=== PATIENT | male | born 1930 | race African-American/Black ===

== ENCOUNTER 2018-03-11 11:31 | Outpatient (CLI) | payer MEDICARE ==
[2018-03-11 12:09] LABS: Blood Urea Nitrogen 23 mg/dL (9-20)
--- NOTE | 2018-03-11 14:43 | Cat Scan Report ---
FINAL REPORT EXAM: CT CHEST W CON HISTORY: CHRONIC COUGH COMPARISON: None. TECHNIQUE: Multiple contiguous axial images were obtained from the thoracic inlet to upper abdomen after administration of IV contrast. Reformatted sagittal and coronal images were available for review. FINDINGS: Medical devices: None. Thyroid: Normal. Lymph nodes: Several sub centimeter lymph nodes in the prevascular, pretracheal, and subcarinal areas of the mediastinum. Vasculature: Mild enlargement of the ascending aorta, which measures up to 3.9 centimeters in diameter. Scattered atherosclerotic calcifications. Small ulcer like projection off the anterior aspect of the ascending aorta (series 2, image 52) and several small ulcer like projections of the distal descending aorta just above the aortic hiatus. Normal caliber of the pulmonary artery. No filling defect to suggest pulmonary embolism. Heart: Normal heart size. Scattered coronary calcifications. Other mediastinal structures: Small hiatal hernia. Lung parenchyma: Scattered tree-in-bud opacities throughout both lungs, most prominent in the right upper lobe. More focal consolidation in the lower aspect of the right upper lobe. Bullous change in the right upper lobe. Background of mild centrilobular emphysematous change. Airways: Diffuse bronchiectasis, most prominent in the bilateral upper lobes with inspissated mucus. Pleura: Apical pleural scarring. No pleural effusion or pneumothorax. Chest wall and spine: No suspicious osseous lesions. No acute fracture or dislocation. Upper Abdomen: Simple appearing bilateral renal cysts. IMPRESSION: 1. Scattered tree-in-bud opacities throughout both lungs, most prominent in the bilateral upper lobes with more focal consolidation in the lower aspect of the right upper lobe. Findings may represent infectious or inflammatory change. 2. Diffuse bronchiectasis, most prominent in the bilateral upper lobes, with inspissated mucus within the airways. 3. Background of mild centrilobular emphysematous change. 4. Mild enlargement of the ascending aorta, measuring up to 3.9 centimeters in diameter. 5. 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 6. Mild to moderate coronary artery calcifications.
== END 2018-03-11 11:32 | disposition home or self-care (01) ==
LOC: CT 11:31
PROVIDERS: ATTEND Internal Medicine Critical Care Medicine
DX: R91.1 Solitary pulmonary nodule (principal); R05 Cough; K44.9 Diaphragmatic hernia without obstruction or gangrene; I25.10 Atherosclerotic heart disease of native coronary artery without angina pectoris
CPT/HCPCS: 36415; 71260; 82565; 84520; Q9967